=== PATIENT | male | born 1955 | race Caucasian/White ===

== ENCOUNTER 2016-10-10 16:38 | Emergency (ER) | payer BC ==
[~2016-10-10] VITALS: Ht 170.2 cm; Wt 92.2 kg
[~2016-10-10 16:38] MED LIST: ASPCH81X PO; CLR10 PO; GLUC10007 PO; MOME16.7 INH; SIMV-151 PO
[2016-10-10 17:08] VITALS: Ht 170.2 cm; Wt 92.2 kg
[2016-10-10] MEDS ORDERED: SULF800T23 PO (17:56)
[2016-10-10] MEDS ORDERED: RIFA300C34 PO (17:56)
[2016-10-10] MEDS ORDERED: OXYC1TAB3 PO (17:56)
[2016-10-10 18:06] VITALS: BP 138/84; PULSE 109; TEMP 37.6; O2SAT 97
--- NOTE | 2016-10-10 22:46 | EMERGENCY ROOM VISIT NOTE ---
History First contact with patient: 17:23 Chief Complaint: WOUND INFECTION Stated Complaint: BLISTERS Nursing Triage Summary: Pt presents with multiple wounds to b/l legs and left buttock. Pt states areas were cultured and showed MRSA. History of Present Illness The patient is a 61 year old male who presents to the Emergency Room with complaints of persistent MRSA infection. The patient started primarily with lesions to his left knee and right thigh about 10 days ago. He was started on Bactrim by his primary care physician and has completed 8 days of this medication. The lesions were cultured and did return positive for MRSA which was sensitive to Bactrim. The patient states he is taking this medication and some of his lesions have significantly improved. He has developed a worsening infection along his left-sided buttocks, that he is not actively able to see because of its anatomic location. The patient has not had fever or chills. He is not diabetic. He rates his discomfort a 7/10, primarily in his buttocks where the infection has worsened. Review of Systems More than 10 systems were reviewed and otherwise negative with the exception of history of present illness. Past Medical/Surgical History No pertinent chronic medical disease Family History No pertinent family history Social History Smoking Status: Never Smoker Housing Status: lives with family Occupation Status: employed Current/Historical Medications Scheduled Aspirin (Aspirin Chewable), 81 MG PO QPM Glucosamine Sulfate (Glucosamine), 2 TAB PO QPM Loratadine (Claritin), 10 MG PO DAILY Mometasone Furoate (Inhalation (Asmanex Hfa), 1 PUFF INH QAM Oxycodone Immediate Rel Tab (Roxicodone Ir), 1-2 TAB PO Q6 Rifampin (Rifadin), 300 MG PO BID Simvastatin (Simvastatin), 20 MG PO QPM Sulfa/Trimethoprim (Bactrim Ds 800MG/160MG), 1 TAB PO BID Physical Exam Vital Signs Date Time Temp Pulse Resp B/P (MAP) Pulse Ox O2 Delivery O2 Flow Rate FiO2 10/10/16 18:06 37.6 109 18 138/84 97 10/10/16 18:05 37.6 109 18 138/84 97 Room Air 10/10/16 17:08 37.6 107 18 126/79 96 Room Air Pain Rating (0-10): 3.0 Physical Exam VITALS: Vitals are noted on the nurse's note and reviewed by myself. Vital signs stable. GENERAL: Well-developed, well-nourished, white male, who is in no acute distress and resting comfortably. Patient is cooperative with the examination. HEAD: Normocephalic atraumatic. HEART: Regular rate and rhythm without murmurs gallops or rubs. LUNGS: Clear to auscultation bilaterally without wheezes, rales or rhonchi. No retractions or accessory muscle use. NEURO: Patient was alert and oriented to person place and time. CN II through XII grossly intact. SKIN: The skin was with multiple healing areas consistent with MRSA infection. The primary left thigh and left knee lesions are without fluctuance or significant cellulitis. There is a very small right posterior thigh abscess that is actively draining. Purulent drainage was easily expressed from this wound, and this does not appear to need formal incision and drainage. Additionally on the left inferior buttocks medially is a larger 5 cm diameter abscess that will require drainage. Medical Decision & Procedures Procedure I examined the patient. Verbal consent was obtained to perform the procedure. After saline and Betadine cleansing and ethyl chloride anesthesia, the abscess was incised with a number 15 scalpel blade. A large amount of purulent material was released with more expressed by pressure. A swab was obtained for culture. The abscess cavity was further probed with a needle ice cream truck driver and the deep pocket expressed. The abscess cavity was then copiously irrigated with sterile saline under pressure. The area was cleaned with sterile saline and dressed with bacitracin and a bulky bandage. The patient tolerated the procedure well. ED Course Physical exam and history were performed. Nursing notes, EMR, and Medication List were personally reviewed. Patient appears to have a diagnosis of MRSA infection. He just completed his eighth day of Bactrim. I was able to review the sensitivity results, and the infection is sensitive to both Bactrim and rifampin. Seeing as the patient continues to have symptoms, as well as development of a larger left-sided buttocks abscess and will extend his course of Bactrim and start him on rifampin. His buttocks abscess was incised and drained as above. The area was already oozing, however my incision did significantly improve the rate of purulent drainage, and good results were obtained. The patient overall tolerated everything well and is stable for discharge home. I will also give him a course of OxyIR for pain control. He is to follow-up with his primary care physician or back in the ER in 48-72 hours for recheck. He is otherwise invited back to the ER sooner if symptoms worsened. He was pleased with plan of care and rated his discomfort a 3/10 at the time of departure. The chart was completed utilizing [employer] Voice Recognition Software. Grammatical errors, random word insertions, pronoun errors, and incomplete sentences are an occasional consequence of this system due to software limitations, ambient noise, and hardware issues. Any formal questions or concerns about the content, text, or information contained within the body of this dictation should be directly addressed to the provider for clarification. . Medical Decision Differential diagnosis: Etiologies such as cellulitis, abscess, MRSA infection, DVT, necrotizing fasciitis, dermatitis, drug eruption, as well as others were entertained.. Blood Pressure Screening Patient's blood pressure: Normal blood pressure Impression Primary Impression: MRSA infection Additional Impression: Abscess of buttock Departure Information Dispostion Home / Self-Care Condition GOOD Prescriptions Oxycodone Immediate Rel Tab (ROXICODONE IR) 5 Mg Tab 1-2 TAB PO Q6 for Pain, #15 TAB Prov: Berny Spears PA-C 10/10/16 Rifampin (Rifadin) 300 Mg Cap 300 MG PO BID for 10 Days, #20 CAP Prov: Berny Spears PA-C 10/10/16 Sulfa/Trimethoprim (Bactrim Ds 800MG/160MG) Tab 1 TAB PO BID for 10 Days, #20 TAB Prov: Berny Spears PA-C 10/10/16 Referrals Bony Melgar M.D. (PCP) No Doctor, Assigned Forms HOME CARE DOCUMENTATION FORM, IMPORTANT VISIT INFORMATION Patient Instructions My [facility] Additional Instructions You were seen and evaluated today on an emergency basis only. This is not a substitute for, or an effort to provide, complete comprehensive medical care. It is not possible to recognize and treat all injuries or illnesses in a single emergency department visit. For this reason it is recommended that you followup with your primary care physician or back in the emergency department in 48-72 hours for recheck. Trimethoprim-Sulfamethoxazole(Bactrim DS): Take one pill twice daily for 10 days for your skin infection. All antibiotics can cause diarrhea. If this occurs and you feel worse or it does not resolve in 1-2 days follow up with your doctor or return to the Emergency Department as this could be signs of serious underlying problems. Any medication can cause an allergic reaction, stop the pills immediately and return to the ER for rash, hives, breathing difficulties, or swelling. Take rifampin 300 mg twice daily for the next 10 days. This medication can change the color of your urine. This is normal. For baseline pain relief you may alternate ibuprofen and acetaminophen every 4 hours for pain control. Take 600 mg ibuprofen (Advil) and then 4 hours later take 1000 mg acetaminophen (Tylenol). Do not take more than 3000 mg acetaminophen in a single day. Oxycodone (OxyIR) 5mg: Take ONE or TWO pills every SIX hours for breakthrough pain. Avoid alcohol, operating machinery or dangerous equipment, working on ladders or roofs, DRIVING, or situations where being under the influence may be dangerous. It is recommended to use an kmal-goc-[id number] stool softener such as Colace, 100mg twice daily while taking this medication to avoid constipation. You are welcome to return to the emergency department anytime with new, worsening, or concerning symptoms. Problem Qualifiers
== END 2016-10-10 18:08 | disposition home or self-care (01) ==
LOC: C.EDB 16:39 → C.EDC 18:08
DX: A49.02 Methicillin resistant Staphylococcus aureus infection, unspecified site (principal); L02.31 Cutaneous abscess of buttock

== ENCOUNTER 2016-10-12 10:03 | Emergency (ER) | payer BC ==
[~2016-10-12] VITALS: Ht 170.2 cm; Wt 97.5 kg
[~2016-10-12 10:03] MED LIST changes: +OXYC1TAB3 PO; +RIFA300C34 PO; +SULF800T23 PO
[2016-10-12 10:13] VITALS: TEMP 36.7; Ht 170.2 cm; Wt 97.5 kg
[2016-10-12] MEDS ORDERED: CLINDAMYCIN 600 MG/54 ML D5W IV STA (10:27)
--- NOTE | 2016-10-12 10:33 | EMERGENCY ROOM VISIT NOTE ---
History Report prepared by Oli: Deana Willis Under the Supervision of: Dr. Brandon Tabor M.D. First contact with patient: 10:19 Chief Complaint: REFERRED BY DOCTOR Stated Complaint: DRAIN ABSCESS,REFFERRED BY YARI History of Present Illness The patient is a 61 year old male who presents to the Emergency Room with complaints of a persistent abscess to his buttocks that he first noticed over a week ago. He currently rates his discomfort as a 1/10 in severity. The patient states that his abscess grew in size and notes that he had difficulty sitting due to the pain and size of the abscess. He states that he was started on Bactrim by his PCP, but then came to the emergency department and had the area drained. The patient reports that the area is not worsening, but is still not better. He was told to come to the emergency department for further work up. The patient denies any pain with bowel movements. Source of History: patient Onset: over a week ago Position: other (buttocks) Symptom Intensity: 02/14 Quality: other (abscess) Timing: other (persistent) Review of Systems See HPI for pertinent positives & negatives. A total of 10 systems reviewed and were otherwise negative. Past Medical & Surgical Medical Problems: (1) Asthma (2) Bronchitis (3) Pneumonia Surgical Problems: (1) H/O left knee surgery (2) History of herniorrhaphy Family History Hypertension Social History Smoking Status: Never Smoker Smokeless Tobacco Use: No Alcohol Use: occasionally Marital Status: Housing Status: lives with family Occupation Status: employed Current/Historical Medications Scheduled Aspirin (Aspirin Chewable), 81 MG PO QPM Glucosamine Sulfate (Glucosamine), 2 TAB PO QPM Loratadine (Claritin), 10 MG PO DAILY Mometasone Furoate (Inhalation (Asmanex Hfa), 1 PUFF INH QAM Oxycodone Immediate Rel Tab (Roxicodone Ir), 1-2 TAB PO Q6 Rifampin (Rifadin), 300 MG PO BID Simvastatin (Simvastatin), 20 MG PO QPM Sulfa/Trimethoprim (Bactrim Ds 800MG/160MG), 1 TAB PO BID Allergies Coded Allergies: Penicillins (Verified Allergy, Unknown, UNSURE, 08/19/15) RASH FROM AUGMENTIN Physical Exam Vital Signs Date Time Temp Pulse Resp B/P (MAP) Pulse Ox O2 Delivery O2 Flow Rate FiO2 9/7/17 12:41 75 18 111/91 96 Room Air 10/12/16 10:13 36.7 82 18 131/74 97 Room Air Physical Exam GENERAL: Patient is a healthy-appearing well-nourished male HEAD: Normocephalic atraumatic EYES: Ocular movements intact pupils equal and react to light OROPHARYNX mucous membranes are moist no exudates present no erythema or edema present NECK: Supple no nuchal rigidity CHEST: Good equal expansion LUNGS: Clear and equal to auscultation CARDIAC: Normal S1 and S2 ABDOMEN: Soft nontender no guarding BACK: No CVA tenderness RECTAL: Large boil to the left buttocks that is draining. EXTREMITIES: No pain upon palpation normal muscle strength in all groups no clubbing cyanosis or edema NEURO: Patient is following commands and answering questions appropriately. Alert and oriented x3 Cranial Nerves 2-12 grossly intact Medical Decision & Procedures Laboratory Results 10/12/16 10:35 Red Blood Count 4.41, Mean Corpuscular Volume 91.2, Mean Corpuscular Hemoglobin 32.0, Mean Corpuscular Hemoglobin Concent 35.1, Mean Platelet Volume 10.3, Neutrophils (%) (Auto) 56.8, Lymphocytes (%) (Auto) 28.9, Monocytes (%) (Auto) 10.6, Eosinophils (%) (Auto) 1.6, Basophils (%) (Auto) 0.8, Neutrophils # (Auto ) 4.30, Lymphocytes # (Auto) 2.19, Monocytes # (Auto) 0.80, Eosinophils # (Auto ) 0.12, Basophils # (Auto) 0.06 10/12/16 10:35 Test 10/12/16 10:35 10/12/16 11:02 White Blood Count 7.57 K/uL (4.8-10.8) Red Blood Count 4.41 M/uL (4.7-6.1) Hemoglobin 14.1 g/dL (14.0-18.0) Hematocrit 40.2 % (42-52) Mean Corpuscular Volume 91.2 fL (80-100) Mean Corpuscular Hemoglobin 32.0 pg (25-34) Mean Corpuscular Hemoglobin Concent 35.1 g/dl (32-36) Platelet Count 285 K/uL (130-400) Mean Platelet Volume 10.3 fL (7.4-10.4) Neutrophils (%) (Auto) 56.8 % Lymphocytes (%) (Auto) 28.9 % Monocytes (%) (Auto) 10.6 % Eosinophils (%) (Auto) 1.6 % Basophils (%) (Auto) 0.8 % Neutrophils # (Auto) 4.30 K/uL (1.4-6.5) Lymphocytes # (Auto) 2.19 K/uL (1.2-3.4) Monocytes # (Auto) 0.80 K/uL (0.11-0.59) Eosinophils # (Auto) 0.12 K/uL (0-0.5) Basophils # (Auto) 0.06 K/uL (0-0.2) RDW Standard Deviation 41.3 fL (36.4-46.3) RDW Coefficient of Variation 12.4 % (11.5-14.5) Immature Granulocyte % (Auto) 1.3 % Immature Granulocyte # (Auto) 0.10 K/uL (0.00-0.02) Anion Gap 7.0 mmol/L (3-11) Est Creatinine Clear Calc Drug Dose 57.5 ml/min Estimated GFR () 57.4 Estimated GFR (Non- 49.5 BUN/Creatinine Ratio 9.8 (10-20) Calcium Level 8.8 mg/dl (8.5-10.1) Total Bilirubin 0.8 mg/dl (0.2-1) Direct Bilirubin 0.2 mg/dl (0-0.2) Aspartate Amino Transf (AST/SGOT) 20 U/L (15-37) Alanine Aminotransferase (ALT/SGPT) 32 U/L (12-78) Alkaline Phosphatase 104 U/L (45-117) Total Protein 7.8 gm/dl (6.4-8.2) Albumin 3.8 gm/dl (3.4-5.0) Lipase 206 U/L (73-393) Urine Color DK YELLOW Urine Appearance CLEAR (CLEAR) Urine pH 5.5 (4.5-7.5) Urine Specific [place] 1.013 (1.000-1.030) Urine Protein NEG (NEG) Urine Glucose (UA) NEG (NEG) Urine Ketones NEG (NEG) Urine Occult Blood NEG (NEG) Urine Nitrite NEG (NEG) Urine Bilirubin NEG (NEG) Urine Urobilinogen NEG (NEG) Urine Leukocyte Esterase NEG (NEG) Labs reviewed by ED physician. Medications Administered Medications (Trade) Dose Ordered Sig/Girish Route Start Time Stop Time Status Last Admin Dose Admin Clindamycin Phosphate 600 mg/ Dextrose 54 ml @ 108 mls/hr TODAY@1030 IV 10/13/16 10:30 10/13/16 10:30 DC 10/12/16 11:00 108 MLS/HR ED Course 1020: Past medical records reviewed. The patient was evaluated in room A9B. A complete history and physical examination was performed. 1027: Ordered Clindamycin Phosphate 600 mg IV. 1156: I discussed the patients case with Dr. Gamble, General Surgery. He states that they will be down to see the patient. 1305: I reevaluated the patient and he is doing well. I discussed the exam findings with him and I discussed the treatment plan. He verbalized complete understanding and agreement. He is ready to go home. Medical Decision This is a 61-year-old male who presents emergency department complaining of buttock abscess. The patient was sent in by his primary care physician to see a surgeon. For this reason surgery was consulted. He was examined and will follow-up as an outpatient the office. In the meantime the patient does not have an elevation in his white blood count cell count. He was given clindamycin here in emergency department and took his Bactrim at home. Medication Reconcilliation Current Medication List: was personally reviewed by me Blood Pressure Screening Patient's blood pressure: Elevated blood pressure Blood pressure disposition: Referred to PCP Impression Primary Impression: Abscess of buttock Scribe Attestation The scribe's documentation has been prepared under my direction and personally reviewed by me in its entirety. I confirm that the note above accurately reflects all work, treatment, procedures, and medical decision making performed by me. Departure Information Dispostion Home / Self-Care Referrals Peter Gamble D.O., Christopher E., M.D. Forms HOME CARE DOCUMENTATION FORM, IMPORTANT VISIT INFORMATION, WORK / SCHOOL INSTRUCTIONS Patient Instructions My [facility] Additional Instructions You have been examined and treated today on an emergency basis only. This is not a substitute for, or an effort to provide, complete comprehensive medical care. It is impossible to recognize and treat all injuries or illnesses in a single emergency department visit. It is therefore important that you follow up closely with Dr Melgar. Call as soon as possible for an appointment. Thank you for your time and consideration. I look forward to speaking with you again soon. Please don't hesitate to call us if you have any questions.
[2016-10-12 10:58] LABS: BASO % 0.8 %; BASO ABS # 0.06 K/uL (0-0.2); COMPLETE YES; EOS % 1.6 %; HEMATOCRIT 40.2 % (42-52); IG% 1.3 %; LYMPH % 28.9 %; LYMPH ABS # 2.19 K/uL (1.2-3.4); MEAN CELL VOLUME 91.2 fL (80-100); MEAN CORPUSCULAR HGB CONC 35.1 g/dl (32-36); MEAN PLATELET VOLUME 10.3 fL (7.4-10.4); MONO % 10.6 %; NEUT % 56.8 %; PLATELET COUNT 285 K/uL (130-400); RED BLOOD COUNT 4.41 M/uL (4.7-6.1); WHITE BLOOD COUNT 7.57 K/uL (4.8-10.8)
[2016-10-12 11:10] LABS: BUN/CREATININE RATIO 9.8 (10-20); CALCIUM 8.8 mg/dl (8.5-10.1); CREATININE 1.5 mg/dl (0.60-1.40); POTASSIUM 3.6 mmol/L (3.5-5.1)
[2016-10-12 11:15] LABS: URINE APPEARANCE CLEAR (CLEAR); URINE BILIRUBIN NEG (NEG); URINE COLOR DK YELLOW; URINE NITRITE NEG (NEG); URINE PH 5.5 (4.5-7.5); URINE SPECIFIC GRAVITY 1.013 (1.000-1.030); UROBILINOGEN NEG (NEG)
[2016-10-12 11:17] LABS: MANUAL MICROSCOPIC REQUIRED? NO; REVIEW REQ? NO
[2016-10-12 12:41] VITALS: BP 111/91; PULSE 75; O2SAT 96
--- NOTE | 2016-10-12 13:08 | Surgery Consultation ---
Consultation Date of Consultation: Oct 12, 2016. Attending Physician: Reason for Consultation: Abscess of Left Buttock History of Present Illness 61-year-old male presents to [facility] ED for evaluation of abscess on left buttock. Patient was at PCP office this morning for follow-up of abscess after recent ED (10/10/16) visit where abscess was drained and cultures were taken (+MRSA). Patient reports that many people have looked at the abscess one time, but no one has examined it more than once to see if it is improving. Patient states that abscess is feeling better- much less painful. Patient denies fever or chills. Patient is on current appropriate antibiotic regimen. Past Medical/Surgical History Medical Problems: (1) Abscess of buttock Status: Acute (2) Abscess of buttock Status: Acute (3) MRSA infection Status: Acute Family History Hypertension Social History Smoking Status: Never Smoker Smokeless Tobacco Use: No Marital Status: Housing Status: lives with family Occupation Status: employed Allergies Coded Allergies: Penicillins (Verified Allergy, Unknown, UNSURE, 08/19/15) RASH FROM AUGMENTIN Home Medications Scheduled Aspirin (Aspirin Chewable), 81 MG PO QPM Glucosamine Sulfate (Glucosamine), 2 TAB PO QPM Loratadine (Claritin), 10 MG PO DAILY Mometasone Furoate (Inhalation (Asmanex Hfa), 1 PUFF INH QAM Oxycodone Immediate Rel Tab (Roxicodone Ir), 1-2 TAB PO Q6 Rifampin (Rifadin), 300 MG PO BID Simvastatin (Simvastatin), 20 MG PO QPM Sulfa/Trimethoprim (Bactrim Ds 800MG/160MG), 1 TAB PO BID Current Inpatient Medications Current Inpatient Medications Medications (Trade) Dose Ordered Sig/Girish Route Start Time Stop Time Status Last Admin Dose Admin Clindamycin Phosphate 600 mg/ Dextrose 54 ml @ 108 mls/hr TODAY@1030 IV 10/13/16 10:30 10/13/16 10:59 10/12/16 11:00 108 MLS/HR Review of Systems Constitutional: No fever, No chills Physical Exam Date Time Temp Pulse Resp B/P (MAP) Pulse Ox O2 Delivery O2 Flow Rate FiO2 10/12/16 12:41 75 18 111/91 96 Room Air 10/12/16 10:13 36.7 82 18 131/74 97 Room Air Skin: + pertinent finding (hardened area on left buttock. non-tender to palpation. no drainage noted. ) Laboratory Results Last 24 Hours Test 10/12/16 10:35 10/12/16 11:02 White Blood Count 7.57 K/uL Red Blood Count 4.41 M/uL Hemoglobin 14.1 g/dL Hematocrit 40.2 % Mean Corpuscular Volume 91.2 fL Mean Corpuscular Hemoglobin 32.0 pg Mean Corpuscular Hemoglobin Concent 35.1 g/dl Platelet Count 285 K/uL Mean Platelet Volume 10.3 fL Neutrophils (%) (Auto) 56.8 % Lymphocytes (%) (Auto) 28.9 % Monocytes (%) (Auto) 10.6 % Eosinophils (%) (Auto) 1.6 % Basophils (%) (Auto) 0.8 % Neutrophils # (Auto) 4.30 K/uL Lymphocytes # (Auto) 2.19 K/uL Monocytes # (Auto) 0.80 K/uL Eosinophils # (Auto) 0.12 K/uL Basophils # (Auto) 0.06 K/uL RDW Standard Deviation 41.3 fL RDW Coefficient of Variation 12.4 % Immature Granulocyte % (Auto) 1.3 % Immature Granulocyte # (Auto) 0.10 K/uL Sodium Level 138 mmol/L Potassium Level 3.6 mmol/L Chloride Level 105 mmol/L Carbon Dioxide Level 26 mmol/L Anion Gap 7.0 mmol/L Blood Urea Nitrogen 15 mg/dl Creatinine 1.50 mg/dl Est Creatinine Clear Calc Drug Dose 57.5 ml/min Estimated GFR () 57.4 Estimated GFR (Non- 49.5 BUN/Creatinine Ratio 9.8 Random Glucose 103 mg/dl Calcium Level 8.8 mg/dl Total Bilirubin 0.8 mg/dl Direct Bilirubin 0.2 mg/dl Aspartate Amino Transf (AST/SGOT) 20 U/L Alanine Aminotransferase (ALT/SGPT) 32 U/L Alkaline Phosphatase 104 U/L Total Protein 7.8 gm/dl Albumin 3.8 gm/dl Lipase 206 U/L Urine Color DK YELLOW Urine Appearance CLEAR Urine pH 5.5 Urine Specific [place] 1.013 Urine Protein NEG Urine Glucose (UA) NEG Urine Ketones NEG Urine Occult Blood NEG Urine Nitrite NEG Urine Bilirubin NEG Urine Urobilinogen NEG Urine Leukocyte Esterase NEG Assessment & Plan No surgical intervention indicated at this time. Will have patient follow-up in the General Surgery Office on 10/16/2016 Continue current antibiotic regimen. Patient instructed to return to ED if abscess worsens. Patient agreeable with plan. Patient had no further questions.
[2016-10-13] MEDS ORDERED: CLINDAMYCIN IV 600 MG in DEXTROSE 5% 50ML 50 ML IV SCH (10:30)
== END 2016-10-12 13:15 | disposition home or self-care (01) ==
LOC: C.EDB 10:05 → C.EDA 13:15
DX: L02.31 Cutaneous abscess of buttock (principal); J45.909 Unspecified asthma, uncomplicated; Z87.01 Personal history of pneumonia (recurrent); Z82.49 Family history of ischemic heart disease and other diseases of the circulatory system; Z79.82 Long term (current) use of aspirin; Z79.899 Other long term (current) drug therapy

== ENCOUNTER 2022-04-11 22:41 | Observation (INO) ==
[2022-04-11] MEDS ORDERED: MoRPHine SULFATE 4 MG/ML 1 ML CARP\\VIAL IV STA (23:25)
[2022-04-11] MEDS ORDERED: ONDANSETRON INJ 2 MG/ML 2 ML VIAL IV STA (23:25)
--- NOTE | 2022-04-12 00:11 | Emergency Department Note ---
Impression & Plan Acute cholecystitis, Chronic lymphocytic leukemia (CLL), B-cell ED Provider Note CHIEF COMPLAINT: Epigastric abdominal pain HISTORY OF PRESENT ILLNESS: This 66-year-old male patient with a history of CLL, chronic kidney disease, prediabetes and GERD presents to the emergency department with complaints of epigastric abdominal pain since about 2:00 this afternoon. The patient states he ate some tortellini, an orange and some trail mix, then developed some crampy epigastric pain. This has happened in the past, most notably a few weeks ago after a big turkey dinner. Patient states he can usually get it to resolve within several hours, but this time he remains. The patient is nauseated but has not vomited. He is not having any diarrhea. He believes it is his gallbladder but has never had it evaluated. He denies any chest pain, shortness of breath, fevers, back pain. REVIEW OF SYSTEMS: A review of systems was performed with positives and pertinent negatives listed in the history of present illness. 10 systems were reviewed and are otherwise negative. ALLERGIES: see below MEDICATIONS: see below PMH: see below SOCIAL HISTORY: see below DDx: Appendicitis, diverticulitis, UTI, obstruction, mesenteric ischemia, aortic pathology, PUD, pancreatitis, biliary pathology, hernia, volvulus, constipation, as well as other pathologies. PHYSICAL EXAM: Vital signs reviewed. General: Well-appearing 66-year-old male, in no significant distress. HEENT: No scleral icterus, PERRLA, neck supple. Moist mucous membranes Cardiovascular: Regular rate and rhythm, no extra sounds. Pulmonary: Clear to auscultation bilaterally, normal work of breathing. Abdomen: Soft, tender to palpation over the epigastric and right upper quadrant, positive guarding, nondistended, positive bowel sounds. Musculoskeletal: Atraumatic, no peripheral edema. Neurologic: Patient awake alert and oriented x 3 Skin: Warm, dry, no rash EMERGENCY DEPARTMENT COURSE/MDM: This patient was evaluated and appeared to be in no significant distress. IV access was obtained and laboratory work was drawn. Ultrasound the right upper quadrant was performed and reveals evidence of acute cholecystitis. The patient's WBC is elevated however he does suffer from CLL as well. Patient was treated with IV Cipro and Flagyl. Case was discussed with general surgery, Dr. Duggan has requested medical admission and he will consult in the morning. Case was discussed with the hospitalist service for further management. Patient was informed of the findings and plan and agrees. MONITORING: An order for cardiac monitoring was placed and the patient is noted to be in a NSR at 68 beats per minute. RADIOLOGY: US gallbladder to my review reveals evidence of acute cholecystitis, otherwise deferred to radiology's overread. DISPOSITION: Home Past Med/Surg History Medical History (Updated 04/12/22 @ 06:58 by Lynne Rudolph MD) Asthma INHALER DAILY Diverticular disease GERD (gastroesophageal reflux disease) Hyperlipidemia Osteoarthritis Tinnitus of left ear Surgical History H/O arthroscopy of left knee H/O bilateral cataract extraction H/O left inguinal hernia repair H/O repair of right rotator cuff History of colonoscopy History of tooth extraction WISDOM TEETH Family History Father Scleroderma Mother Dementia Hypertension Family/Other Prostate cancer Paternal uncle Aunt Breast cancer Denies family history of Ovarian cancer Coronary heart disease Myocardial infarction Colorectal cancer Social History Smoking Status: Never smoker Second Hand Exposure: No; Hx Alcohol Use: Yes Alcohol type: beer Alcohol Intake Frequency: 2-3 x/Week Hx Substance Use: No Preferred Language: Portuguese Communication Ability: Effective Visual Impairment: No Limitations Hearing Ability: Normal Tube Fitter Required: No Beliefs That Will Affect Care: None marital status: Current Living Situation: Spouse Current Living Situation Comment: LIVES WITH current occupational status: retired current occupation: [employer] Other Information That Helps Us Care for You: No Feels Safe at Home: Yes Safety Concerns: Feels Safe At This Time Childhood Exposure to Second-Hand Smoke: No caffeine: Yes Dental Care, Regularly: Yes Physical Activity Frequency: Daily Physical Activity Frequency Comment: stretching, bicycling 2-6 hours per day Seatbelt Use: always Sunscreen Use: Yes Assistive Devices: None Allergies Allergies Allergy/AdvReac Type Severity Reaction Status Date / Time Penicillins Allergy Mild Rash Verified 09/26/21 14:01 amoxicillin [From Augmentin] Allergy Unknown Verified 04/12/22 04:58 clavulanic acid Allergy Unknown Verified 04/12/22 04:58 [From Augmentin] Home Meds Home Medications Medication Instructions Recorded Confirmed cetirizine 10 mg tablet (Zyrtec) 10 mg PO QPM 11/05/17 04/12/22 glucosamine HCl 500 mg tablet 2,000 mg PO QPM 11/05/17 04/12/22 aspirin 81 mg tablet,delayed 81 mg PO .QOD 08/03/20 04/12/22 release (Fidelia Low Dose Aspirin) Previous Rx's Medication Instructions Recorded fluticasone propionate 100 1 inh inhalation BID #180 ea 11/23/20 mcg/actuation blister powder for inhalation (Flovent Diskus) metformin 500 mg tablet,extended 500 mg PO BID #180 tabs 09/13/21 release 24hr famotidine 20 mg tablet 20 mg PO BID 90 days #180 tabs 10/31/21 simvastatin 20 mg tablet 20 mg PO QPM #90 tabs 10/31/21 Results & Data (ED) Vital Signs Vital Signs - 24 hr 04/11/22 22:46 04/12/22 02:21 Temperature 36.4 C L Temperature Source Temporal Artery Scan Pulse Rate 69 Pulse Rate [Right] 68 Respiratory Rate 18 18 Respiratory Effort / Characteristics Non-Labored Spontaneous Respiratory Depth Normal Normal Blood Pressure 148/76 H Blood Pressure [Right Arm] 118/69 Blood Pressure Mean 100 Blood Pressure Mean [Right Arm] 85 Blood Pressure Position Sitting Pulse Oximetry 98 96 Oxygen Delivery Method Room Air Room Air Sepsis Recent Fever Within 48 Hours No Sepsis New/Unexplained Change in Mental Status No Sepsis Action Taken by Nursing No Action Required Home Medications Current Medication List: was personally reviewed by me Laboratory Data Attestation: I reviewed the patient's lab results. 04/12/22 01:04 04/12/22 01:04 Lab Results 04/12/22 04/12/22 04/12/22 Range/Units 01:04 01:04 02:20 WBC 18.13 H (4.8-10.8) K/ul RBC 4.09 L (4.70-6.10) M/uL Hgb 13.0 L (14.0-18.0) g/dl Hct 38.0 L (42.0-52.0) % MCV 92.9 (80.0-100.0) fL MCH 31.8 (25.0-34.0) pg MCHC 34.2 (32.0-36.0) g/dL RDW Std Deviation 42.4 (36.4-46.3) fL RDW Coeff of Zana 12.4 (11.5-14.5) % Plt Count 185 (130-400) K/uL MPV 11.6 (9.4-12.4) fL Immature Gran % (Auto) 0.7 % Neut % (Auto) 64.9 % Lymph % (Auto) 31.8 % [place] % (Auto) 2.4 % Eos % (Auto) 0.0 % Baso % (Auto) 0.2 % Neut # (Auto) 11.77 H (1.40-6.50) K/uL Lymph # (Auto) 5.77 H (1.2-3.4) K/uL [place] # (Auto) 0.43 (0.11-0.59) K/uL Eos # (Auto) 0.00 (0-0.50) K/uL Baso # (Auto) 0.03 (0-0.2) K/uL Immature Gran # (Auto) 0.13 (0.01-0.20) K/uL RBC Morphology Unremarkable Sodium 137 (136-145) mmol/L Potassium 4.2 (3.5-5.1) mmol/L Chloride 104 (98-107) mmol/L Carbon Dioxide 27 (21-32) mmol/L Anion Gap 6 (3-11) BUN 16 (6-23) mg/dl Creatinine 1.15 (0.6-1.4) mg/dl Est Cr Clr Drug Dosing 66.8 ml/min Est GFR ( Amer) 76.4 ml/min Est GFR (Non-Af Amer) 65.9 ml/min BUN/Creatinine Ratio 13.9 (10-20) Glucose 143 H (70-99(Fasting)) mg/dl Calcium 8.8 (8.5-10.1) mg/dl Total Bilirubin 0.6 (0.2-1.0) mg/dl AST 15 (13-39) U/L ALT 13 (7-52) U/L Alkaline Phosphatase 68 (34-104) U/L Total Protein 6.8 (6.0-8.3) gm/dl Albumin 4.5 (3.4-5.0) gm/dl Globulin 2.3 L (2.5-4.0) gm/dl Albumin/Globulin Ratio 2.0 (0.9-2) Lipase 23 (11-82) U/L SARS-CoV-2, RNA, NAAT NEGATIVE (NEGATIVE) Administered Medications Lactated Ringer's (Lr) 1,000 mls @ 100 mls/hr IV .Q10H MARIA DEL CARMEN Stop: 04/12/22 14:51 Last Infusion: 04/12/22 06:24 Dose: 100 mls/hr Documented By: Admin: 04/12/22 05:11 Dose: 100 mls/hr Documented By: JONATHAN Discontinued Medications Hydromorphone HCl (Hydromorphone Inj 0.5 Mg/0.5 Ml Syr) 0.5 mg IV Q30M PRN PRN Reason: Pain Stop: 04/26/22 01:56 Last Admin: 04/12/22 04:19 Dose: 0.5 mg Documented By: Admin: 04/12/22 02:11 Dose: 0.5 mg Documented By: TONY Ciprofloxacin (Cipro / D5w) 400 mg in 200 mls @ 100 mls/hr IV NOW STA; Protocol Stop: 04/12/22 03:53 Last Infusion: 04/12/22 04:19 Dose: 0 mls/hr Documented By: Admin: 04/12/22 02:11 Dose: 100 mls/hr Documented By: TONY Metronidazole (Flagyl) 500 mg in 100 mls @ 100 mls/hr IV NOW STA Stop: 04/12/22 02:53 Last Infusion: 04/12/22 04:54 Dose: 0 mls/hr Documented By: Admin: 04/12/22 03:23 Dose: 100 mls/hr Documented By: TONY Morphine Sulfate (Morphine Sulfate 4 Mg/Ml 1 Ml Carp\Vial) 4 mg IV NOW STA Stop: 04/11/22 23:26 Last Admin: 04/12/22 00:12 Dose: 4 mg Documented By: TONY Ondansetron HCl (Ondansetron Inj 2 Mg/Ml 2 Ml Vial) 4 mg IV NOW STA Stop: 04/11/22 23:26 Last Admin: 04/12/22 00:12 Dose: 4 mg Documented By: TONY Imaging Data Radiologist's Impression: Gallbladder Ultrasound 04/11/22 23:25 Exam(s): US GALLBLADDER EXAM: US Abdomen Limited, Gallbladder CLINICAL HISTORY: Reason for exam: Epigastric pain. TECHNIQUE: Real-time ultrasound of the right upper quadrant with image documentation. COMPARISON: No relevant prior studies available. FINDINGS: Limitations: The examination is moderately limited by overlying bowel gas. Liver: Unremarkable. No evidence for intra-or extra-hepatic biliary ductal dilatation, the common bile duct measures 0.5 cm. Gallbladder: The gallbladder is distended with minimal wall thickening. There is a 0.9 cm calculus noted in the gallbladder neck (image 450 series 1). Common bile duct: See above. Pancreas: Unremarkable as visualized. IMPRESSION: Findings suggesting acute cholecystitis Electronically signed by: Hayden Wilson MD 04/12/22 01:33 AM Discharge Plan Visit Data Chief Complaint: Abdominal Pain Stated Complaint: PAIN BELOW RIB CAGE,VOMIT, ED Provider: Lynne Rudolph Discharge Problem: Acute cholecystitis, Chronic lymphocytic leukemia (CLL), B-cell Patient Disposition: Admitted As Inpatient Discharge Instructions Interventions: ED Discharge Assessment Last Done: 04/12/22 03:51
[2022-04-12 01:23] LABS: Mean Corpuscular Hemoglobin 31.8 pg (25.0-34.0); Mean Corpuscular Hgb Conc 34.2 g/dL (32.0-36.0); Mean Corpuscular Volume 92.9 fL (80.0-100.0); Mean Platelet Volume 11.6 fL (9.4-12.4); Platelet Count 185 K/uL (130-400); RDW Coefficient of Variation 12.4 % (11.5-14.5); RDW Standard Deviation 42.4 fL (36.4-46.3); Red Blood Count 4.09 M/uL (4.70-6.10); White Blood Count 18.13 K/ul (4.8-10.8)
--- NOTE | 2022-04-12 01:34 | Ultrasound Report ---
Exam(s): US GALLBLADDER EXAM: US Abdomen Limited, Gallbladder CLINICAL HISTORY: Reason for exam: Epigastric pain. TECHNIQUE: Real-time ultrasound of the right upper quadrant with image documentation. COMPARISON: No relevant prior studies available. FINDINGS: Limitations: The examination is moderately limited by overlying bowel gas. Liver: Unremarkable. No evidence for intra-or extra-hepatic biliary ductal dilatation, the common bile duct measures 0.5 cm. Gallbladder: The gallbladder is distended with minimal wall thickening. There is a 0.9 cm calculus noted in the gallbladder neck (image 450 series 1). Common bile duct: See above. Pancreas: Unremarkable as visualized. IMPRESSION: Findings suggesting acute cholecystitis Electronically signed by: Hayden Wilson MD 04/12/22 01:33 AM
[2022-04-12 01:36] LABS: Albumin Level 4.5 gm/dl (3.4-5.0); BUN Creatinine Ratio 13.9 (10-20); Bilirubin,Total 0.6 mg/dl (0.2-1.0); Calcium 8.8 mg/dl (8.5-10.1); Creatinine Clr Calc Pharmacy 66.8 ml/min; Est GFR (African American) 76.4 ml/min; Est GFR (Non-African American) 65.9 ml/min; Globulin 2.3 gm/dl (2.5-4.0); Potassium 4.2 mmol/L (3.5-5.1); Total Protein 6.8 gm/dl (6.0-8.3)
[2022-04-12] MEDS ORDERED: metroNIDAZOLE 500 MG/100 ML BAG IV STA (01:54)
[2022-04-12] MEDS ORDERED: CIPROFLOXACIN / D5W 400 MG/200 ML BAG IV STA (01:54)
[2022-04-12 01:56] LABS: Basophils # (auto) 0.03 K/uL (0-0.2); Basophils % (auto) 0.2 %; Immature Granulocytes # (auto) 0.13 K/uL (0.01-0.20); Immature Granulocytes % (auto) 0.7 %; Lymphocytes # (auto) 5.77 K/uL (1.2-3.4); Lymphocytes % (auto) 31.8 %; Monocytes # (auto) 0.43 K/uL (0.11-0.59); Monocytes % (auto) 2.4 %; Neutrophils # (auto) 11.77 K/uL (1.40-6.50); Neutrophils % (auto) 64.9 %; RBC Morphology Unremarkable
[2022-04-12] MEDS: HYDROmorphone INJ 0.5 MG/0.5 ML SYR IV PRN ×2 (02:11→04:19)
--- NOTE | 2022-04-12 03:06 | History & Physical Report ---
Patient seen and examined. I agree with the history and physical and the plan as outlined in the resident's note. Date of Service April 12, 2022 Assessment & Plan (1) Acute cholecystitis: Plan: -Clinical history and exam suggestive of acute cholecystitis. Low suspicion at present for cholangitis as pt is afebrile, VSS -NPO, LR at 100 cc/hr mIVF -Zofran PRN nausea. Pain control with Dilaudid, Toradol PRN -Continue ciprofloxacin/Flagyl -Consult general surgery (2) Dyslipidemia: Plan: -Holding home statin while NPO (3) GERD (gastroesophageal reflux disease): Plan: -Holding home famotidine while NPO, convert to IV (4) Chronic kidney disease, stage 3: Plan: -Cr at baseline on admission -Stable, trend BMP (5) Chronic lymphocytic leukemia (CLL), B-cell: Plan: -WBC 18 likely secondary to CLL and less so from acute infection -Pt is currently monitoring CLL, no active treatment -Trend CBC (6) Impaired fasting glucose: Plan: -Prediabetes, A1C 5.8% in 02/27 -Diet-controlled (7) Asthma: Plan: -Continue home inhaler Plan FENGI: NPO Code status: Full DVT ppx: SCDs Isolation: None Dispo: Medical/surgical History of Present Illness Chief Complaint: Abdominal pain Primary Care Provider: Bony Melgar MD 66 yo M with PMH CLL, CKD3, GERD, prediabetes, asthma, HLD presenting with abdominal pain. Pt states he has had intermittent epigastric/RUQ abdominal pain for past few years, typically lasts for few hours with self-resolution, exacerbated by greasy/oily foods. Earlier on 04/11 after lunch he developed epigastric abdominal pain without radiation to anywhere else. This pain is similar to his previous ones- describes as sharp, moderate severity, associated with nausea. It persisted longer than usual so he came to ED. Pt arrived to ER hemodynamically stable. Initial labs include WBC 18. CBC, CMP, lipase otherwise unremarkable. RUQ US with findings suggestive of cholecystitis. Pt was given Zofran, morphine, Dilaudid and ciprofloxacin/Flagyl in ER. On my evaluation, he denies active abdominal pain but this was shortly after administration of pain medication. Allergies Allergy/AdvReac Type Severity Reaction Status Date / Time Penicillins Allergy Mild Rash Verified 09/26/21 14:01 Augmentin TABS Allergy Unknown Uncoded 04/12/22 01:30 Home Medications Medication Instructions Recorded Confirmed Type cetirizine 10 mg tablet (Zyrtec) 10 mg PO QPM 11/05/17 04/12/22 History glucosamine HCl 500 mg tablet 2,000 mg PO QPM 11/05/17 04/12/22 History aspirin 81 mg tablet,delayed 81 mg PO .QOD 08/03/20 04/12/22 History release (Fidelia Low Dose Aspirin) fluticasone propionate 100 1 inh inhalation BID #180 ea 11/23/20 04/12/22 Rx mcg/actuation blister powder for inhalation (Flovent Diskus) metformin 500 mg tablet,extended 500 mg PO BID #180 tabs 09/13/21 04/12/22 Rx release 24hr famotidine 20 mg tablet 20 mg PO BID 90 days #180 tabs 10/31/21 04/12/22 Rx simvastatin 20 mg tablet 20 mg PO QPM #90 tabs 10/31/21 04/12/22 Rx Past Med/Surg History Medical History (Updated 04/12/22 @ 03:07 by Hannah Jackson MD) Asthma INHALER DAILY Diverticular disease GERD (gastroesophageal reflux disease) Hyperlipidemia Osteoarthritis Tinnitus of left ear Surgical History H/O arthroscopy of left knee H/O bilateral cataract extraction H/O left inguinal hernia repair H/O repair of right rotator cuff History of colonoscopy History of tooth extraction WISDOM TEETH Family History Father Scleroderma Mother Dementia Hypertension Family/Other Prostate cancer Paternal uncle Aunt Breast cancer Denies family history of Ovarian cancer Coronary heart disease Myocardial infarction Colorectal cancer Social History Smoking Status: Never smoker Second Hand Exposure: No; Hx Alcohol Use: Yes Alcohol type: beer Alcohol Intake Frequency: 2-3 x/Week Hx Substance Use: No Preferred Language: Frisian Communication Ability: Effective Visual Impairment: No Limitations Hearing Ability: Normal Secretary Bookkeeper Required: No Beliefs That Will Affect Care: None marital status: Current Living Situation: Spouse Current Living Situation Comment: LIVES WITH current occupational status: retired current occupation: [employer] Feels Safe at Home: Yes Childhood Exposure to Second-Hand Smoke: No caffeine: Yes Dental Care, Regularly: Yes Physical Activity Frequency: Daily Physical Activity Frequency Comment: stretching, bicycling 2-6 hours per day Seatbelt Use: always Sunscreen Use: Yes Assistive Devices: None Review of Systems Review of Systems: Per HPI Physical Exam Constitutional: WD/WN, vitals as above no acute distress Eyes: PERRL, conjunctivae normal, anicteric sclerae Neck: trachea midline, no thyromegaly Respiratory: normal respiratory effort, lungs clear to auscultation Cardiovascular: RRR, no murmur, no edema Gastrointestinal (Abdomen): Soft, nondistended, tender to epigastrium and RUQ, positive Nguyễn sign, no rebound or guarding, normal bowel sounds Skin: no rashes, warm and dry Neurologic: moves all extremities Psychiatric: A+Ox3, euthymic affect Results & Data Results & Data ([facility]) Vital Signs (Past 12 Hours) Vital Signs Temp Pulse Pulse Resp BP BP Pulse Ox 04/12/22 02:21 68 18 118/69 96 04/11/22 22:46 36.4 C L 69 18 148/76 H 98 O2 Del Method 04/12/22 02:21 Room Air 04/11/22 22:46 Room Air Code Status & VTE Plan VTE Prophylaxis Plan VTE Prophylaxis will be ordered: Yes Resident Activity Tracking Resident Involvement: Resident Care Provided Care Provided: Adult Hospital Medicine
[2022-04-12] MEDS ORDERED: LACTATED RINGER'S 1,000 ML IV SCH (04:52)
[2022-04-12] MEDS ORDERED: HYDROmorphone INJ 0.5 MG/0.5 ML SYR IV PRN (04:52)
[2022-04-12] MEDS ORDERED: KETOROLAC TROMETHAMINE 15 MG/ML VIAL IV PRN (04:52)
[2022-04-12] MEDS ORDERED: ONDANSETRON INJ 2 MG/ML 2 ML VIAL IV PRN ×2 (04:52→10:25)
[2022-04-12 05:26] LABS: Appearance Urine Cloudy (Clear); Bacteria Urine Automated Negative (Negative); Bilirubin Urine Negative (Negative); Blood Urine Negative (Negative); Color Urine Yellow; Epithelial Cell Urine Auto 20-30 /lpf (0-5); Glucose Urine UA Trace (Negative); Ketones Urine Trace (Negative); Leukocyte Esterase Urine Negative (Negative); Nitrite Urine Negative (Negative); Protein Urine Negative (Negative); RBC Urine Automated 0-4 /hpf (0-4); Specific Gravity Urine 1.024 (1.000-1.030); Urobilinogen Urine Negative (Negative); pH Urine 6.5 (4.5-7.5)
[2022-04-12] MEDS: FLUTICASONE FUROATE 100MCG 14 PUFFS/INHALER INH SCH (08:04)
--- NOTE | 2022-04-12 08:31 | Hospitalist Progress Note ---
Date of Service April 12, 2022 Assessment & Plan (1) Acute cholecystitis: Plan: -Clinical history, exam, gallbladder ultrasound with findings suggestive of acute cholecystitis. -S/p cholecystectomy 04/[address] Fung. -Advanced to clear liquid diet, and given fluid bolus due to mild hypotension postop. -Zofran PRN nausea. Pain control with Tylenol, oxycodone, Dilaudid with pain parameters. -Continue ciprofloxacin/Flagyl through tomorrow. -General surgery also following this patient in the postop period, appreciate recommendations. (2) Dyslipidemia: Plan: -Resume home statin. (3) GERD (gastroesophageal reflux disease): Plan: -Resume home famotidine 20 mg p.o. twice daily. (4) Chronic kidney disease, stage 3: Plan: -Cr at baseline on admission, continue to trend, discontinue Toradol. (5) Chronic lymphocytic leukemia (CLL), B-cell: Plan: -Patient with a history of B-cell leukemia, with a chronically elevated white blood cell count of around 11.5, however elevated up to 18 on admission, s uspected secondary to concurrent cholecystitis. -Daily CBC while admitted. (6) Impaired fasting glucose: Plan: -Prediabetes, A1C 5.8% in 02/27 -Diet-controlled -Hold metformin for now, can resume on discharge. (7) Asthma: Plan: -Continue home inhaler Plan FENGI: Clear liquid diet Code status: Full DVT ppx: SCDs Isolation: None Dispo: Medical/surgical Admission and Anticipated Discharge Date Admission Date: April 12, 2022 Subjective Patient seen today after cholecystectomy, very minimal pain, no nausea, no shortness of breath or chest pain. Review of Systems Review of Systems: All systems reviewed & are unremarkable except as noted in Subjective Physical Exam Constitutional: WD/WN, vitals as above Respiratory: normal respiratory effort, lungs clear to auscultation Cardiovascular: RRR, no murmur, no edema Gastrointestinal (Abdomen): normal bowel sounds, soft, nontender, no hepatosplenomegaly Skin: no rashes, warm and dry 4 small laparoscopic incisions with dressings noted on abdomen, dressings not disturbed in this immediate postop period Psychiatric: A+Ox3, euthymic affect Results & Data Results & Data ([facility]) Vital Signs (Past 12 Hours) Vital Signs Temp Pulse Pulse Pulse Resp BP BP 03/08/23 07:41 36.7 C 69 17 104/65 04/12/22 04:45 37.2 C 93 H 18 115/72 04/12/22 03:44 71 16 108/63 04/12/22 02:21 68 18 118/69 04/11/22 22:46 36.4 C L 69 18 148/76 H Pulse Ox O2 Del Method 04/12/22 07:41 93 Room Air 04/12/22 04:45 95 Room Air 04/12/22 03:44 93 Room Air 04/12/22 02:21 96 Room Air 04/11/22 22:46 98 Room Air PG Care Time/CCT Total # of Minutes Spent Total Time Spent with Patient: Total time spent is greater than 50% in coordination of care (as documented) at patient's floor/unit and/or counseling patient: Coding Level of Care Code None Diagnoses Acute cholecystitis K81.0 Dyslipidemia E78.5 GERD (gastroesophageal reflux disease) K21.9 Chronic kidney disease, stage 3 N18.3 Chronic lymphocytic leukemia (CLL), B-cell C91.10 Impaired fasting glucose R73.01 Asthma J45.909
[2022-04-12] MEDS ORDERED: FAMOTIDINE 20 MG in SYRINGE 3 ML IV SCH (09:00)
[2022-04-12] MEDS: metroNIDAZOLE 500 MG/100 ML BAG IV SCH ×2 (09:49→17:08)
--- NOTE | 2022-04-12 10:04 | Surgery Consultation ---
Date of Consultation April 12, 2022 Assessment & Plan (1) Acute cholecystitis: 66 year-old male with evidence of acute calculous cholecystitis with history of what sounds like recurrent biliary colic. Pain persisted and was more severe with vomiting x 2 which prompted ER evaluation. Given the recurrent epiosdes and ultrasound showing distended gallbladder with stone in neck of gallbladder and elevated leukocytosis, discussed indication for cholecystectomy. Discussed procedure and risks and expected recovery. Informed consent obtained with Dr. Fung. Keep NPO. OR for later this am. Discussed with Dr. Fung who agrees with above and obtained informed consent with patient. I reviewed pt's H/P, labs and U/S study with pt, I recommend to do laparoscopic cholecystectomy, possible open or cholangiogram, D/W benefits, risks and alternatives of the surgery, the risks - infection, bleeding, injury other organs, [place], incisional hernia, may need ERCP, pt understood, he signed informed consent, I answered all questions, History of Present Illness Reason for Consultation: Acute calculous cholecystitis Requesting Physician: Chanel Garza DO Attending Physician: Chanel Garza DO History of Present Illness Madan is a pleasant 66 year-old male with history of CLL, chronic kidney disease stage 3, dyslipidemia, GERD, asthma who presented to ED with complaint of epigastric abdominal pain with radiation to his back that started at 2 pm yesterday after eating lunch. Pain persisted and progressively got worse. History of similar episodes in past about 3 times but usually self resolves. Vomiting x 2. Mild chills. No fevers. No changes in bowel habits. No blood in stools. Takes 81 mg aspirin daily. History of inguinal hernia repair no other abdominal surgeries. States he is feeling good this am and pain has resolved but was given pain medication. No further nausea or vomiting. No fevers this am. Ultrasound showing gallstone in neck of gallbladder with associated wall thickening. Leukocytosis of 18K. Allergies Allergy/AdvReac Type Severity Reaction Status Date / Time Penicillins Allergy Mild Rash Verified 09/26/21 14:01 amoxicillin [From Augmentin] Allergy Unknown Verified 04/12/22 04:58 clavulanic acid Allergy Unknown Verified 04/12/22 04:58 [From Augmentin] Home Medications Medication Instructions Recorded Confirmed Type cetirizine 10 mg tablet (Zyrtec) 10 mg PO QPM 11/05/17 04/12/22 History glucosamine HCl 500 mg tablet 2,000 mg PO QPM 11/05/17 04/12/22 History aspirin 81 mg tablet,delayed 81 mg PO .QOD 08/03/20 04/12/22 History release (Fidelia Low Dose Aspirin) fluticasone propionate 100 1 inh inhalation BID #180 ea 11/23/20 04/12/22 Rx mcg/actuation blister powder for inhalation (Flovent Diskus) metformin 500 mg tablet,extended 500 mg PO BID #180 tabs 09/13/21 04/12/22 Rx release 24hr famotidine 20 mg tablet 20 mg PO BID 90 days #180 tabs 10/31/21 04/12/22 Rx simvastatin 20 mg tablet 20 mg PO QPM #90 tabs 10/31/21 04/12/22 Rx Patient History Medical History (Updated 04/12/22 @ 06:58 by Lynne Rudolph MD) Asthma INHALER DAILY Diverticular disease GERD (gastroesophageal reflux disease) Hyperlipidemia Osteoarthritis Tinnitus of left ear Surgical History H/O arthroscopy of left knee H/O bilateral cataract extraction H/O left inguinal hernia repair H/O repair of right rotator cuff History of colonoscopy History of tooth extraction WISDOM TEETH Family History Father Scleroderma Mother Dementia Hypertension Family/Other Prostate cancer Paternal uncle Aunt Breast cancer Denies family history of Ovarian cancer Coronary heart disease Myocardial infarction Colorectal cancer Social History Smoking Status: Never smoker Second Hand Exposure: No; Hx Alcohol Use: Yes Alcohol type: beer Alcohol Intake Frequency: 2-3 x/Week Hx Substance Use: No Preferred Language: Romansh Communication Ability: Effective Visual Impairment: No Limitations Hearing Ability: Normal 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 Beliefs That Will Affect Care: None marital status: Current Living Situation: Spouse Current Living Situation Comment: LIVES WITH current occupational status: retired current occupation: [employer] Other Information That Helps Us Care for You: No Feels Safe at Home: Yes Safety Concerns: Feels Safe At This Time Childhood Exposure to Second-Hand Smoke: No caffeine: Yes Dental Care, Regularly: Yes Physical Activity Frequency: Daily Physical Activity Frequency Comment: stretching, bicycling 2-6 hours per day Seatbelt Use: always Sunscreen Use: Yes Assistive Devices: None Physical Exam Constitutional: WD/WN, vitals as above cooperative and comfortable; no acute distress and not ill appearing Neck: normal visual inspection and trachea midline Respiratory: normal respiratory effort, lungs clear to auscultation Cardiovascular: Rate/Rhythm: regular rate and regular rhythm Gastrointestinal (Abdomen): Inspection/Auscultation: abdomen normal to inspection; abdomen not distended and + abnormal bowel sounds Percussion/Palpation: abdomen soft; abdomen nontender, no guarding and abdomen not rigid Skin: no rashes, warm and dry no jaundice Psychiatric: A+Ox3, euthymic affect Results & Data ([facility]) Vital Signs (Past 12 Hours) Vital Signs Temp Pulse Pulse Pulse Resp BP BP 04/12/22 07:41 36.7 C 69 17 104/65 04/12/22 04:45 37.2 C 93 H 18 115/72 04/12/22 03:44 71 16 108/63 04/12/22 02:21 68 18 118/69 04/11/22 22:46 36.4 C L 69 18 148/76 H Pulse Ox O2 Del Method 04/12/22 07:41 93 Room Air 04/12/22 04:45 95 Room Air 04/12/22 03:44 93 Room Air 04/12/22 02:21 96 Room Air 04/11/22 22:46 98 Room Air Laboratory Results 04/12/22 04/12/22 04/12/22 Range/Units 05:05 02:20 01:04 WBC (4.8-10.8) K/ul RBC (4.70-6.10) M/uL Hgb (14.0-18.0) g/dl Hct (42.0-52.0) % MCV (80.0-100.0) fL MCH (25.0-34.0) pg MCHC (32.0-36.0) g/dL RDW Std Deviation (36.4-46.3) fL RDW Coeff of Zana (11.5-14.5) % Plt Count (130-400) K/uL MPV (9.4-12.4) fL Immature Gran % (Auto) % Neut % (Auto) % Lymph % (Auto) % [place] % (Auto) % Eos % (Auto) % Baso % (Auto) % Neut # (Auto) (1.40-6.50) K/uL Lymph # (Auto) (1.2-3.4) K/uL [place] # (Auto) (0.11-0.59) K/uL Eos # (Auto) (0-0.50) K/uL Baso # (Auto) (0-0.2) K/uL Immature Gran # (Auto) (0.01-0.20) K/uL RBC Morphology Sodium 137 (136-145) mmol/L Potassium 4.2 (3.5-5.1) mmol/L Chloride 104 (98-107) mmol/L Carbon Dioxide 27 (21-32) mmol/L Anion Gap 6 (3-11) BUN 16 (6-23) mg/dl Creatinine 1.15 (0.6-1.4) mg/dl Est Cr Clr Drug Dosing 66.8 ml/min Est GFR ( Amer) 76.4 ml/min Est GFR (Non-Af Amer) 65.9 ml/min BUN/Creatinine Ratio 13.9 (10-20) Glucose 143 H (70-99(Fasting)) mg/dl Calcium 8.8 (8.5-10.1) mg/dl Total Bilirubin 0.6 (0.2-1.0) mg/dl AST 15 (13-39) U/L ALT 13 (7-52) U/L Alkaline Phosphatase 68 (34-104) U/L Total Protein 6.8 (6.0-8.3) gm/dl Albumin 4.5 (3.4-5.0) gm/dl Globulin 2.3 L (2.5-4.0) gm/dl Albumin/Globulin Ratio 2.0 (0.9-2) Lipase 23 (11-82) U/L Urine Color Yellow Urine Appearance Cloudy A (Clear) Urine pH 6.5 (4.5-7.5) Ur Specific [place] 1.024 (1.000-1.030) Urine Protein Negative (Negative) Urine Glucose (UA) Trace H (Negative) Urine Ketones Trace H (Negative) Urine Blood Negative (Negative) Urine Nitrite Negative (Negative) Urine Bilirubin Negative (Negative) Urine Urobilinogen Negative (Negative) Ur Leukocyte Esterase Negative (Negative) Urine WBC (Auto) 1-5 (0-5) /hpf Urine RBC (Auto) 0-4 (0-4) /hpf U Hyaline Cast (Auto) 1-5 (0-5) /lpf U Epithel Cells (Auto) 20-30 H (0-5) /lpf Urine Bacteria (Auto) Negative (Negative) SARS-CoV-2, RNA, NAAT NEGATIVE (NEGATIVE) 04/12/22 Range/Units 01:04 WBC 18.13 H (4.8-10.8) K/ul RBC 4.09 L (4.70-6.10) M/uL Hgb 13.0 L (14.0-18.0) g/dl Hct 38.0 L (42.0-52.0) % MCV 92.9 (80.0-100.0) fL MCH 31.8 (25.0-34.0) pg MCHC 34.2 (32.0-36.0) g/dL RDW Std Deviation 42.4 (36.4-46.3) fL RDW Coeff of Zana 12.4 (11.5-14.5) % Plt Count 185 (130-400) K/uL MPV 11.6 (9.4-12.4) fL Immature Gran % (Auto) 0.7 % Neut % (Auto) 64.9 % Lymph % (Auto) 31.8 % [place] % (Auto) 2.4 % Eos % (Auto) 0.0 % Baso % (Auto) 0.2 % Neut # (Auto) 11.77 H (1.40-6.50) K/uL Lymph # (Auto) 5.77 H (1.2-3.4) K/uL [place] # (Auto) 0.43 (0.11-0.59) K/uL Eos # (Auto) 0.00 (0-0.50) K/uL Baso # (Auto) 0.03 (0-0.2) K/uL Immature Gran # (Auto) 0.13 (0.01-0.20) K/uL RBC Morphology Unremarkable Sodium (136-145) mmol/L Potassium (3.5-5.1) mmol/L Chloride (98-107) mmol/L Carbon Dioxide (21-32) mmol/L Anion Gap (3-11) BUN (6-23) mg/dl Creatinine (0.6-1.4) mg/dl Est Cr Clr Drug Dosing ml/min Est GFR ( Amer) ml/min Est GFR (Non-Af Amer) ml/min BUN/Creatinine Ratio (10-20) Glucose (70-99(Fasting)) mg/dl Calcium (8.5-10.1) mg/dl Total Bilirubin (0.2-1.0) mg/dl AST (13-39) U/L ALT (7-52) U/L Alkaline Phosphatase (34-104) U/L Total Protein (6.0-8.3) gm/dl Albumin (3.4-5.0) gm/dl Globulin (2.5-4.0) gm/dl Albumin/Globulin Ratio (0.9-2) Lipase (11-82) U/L Urine Color Urine Appearance (Clear) Urine pH (4.5-7.5) Ur Specific [place] (1.000-1.030) Urine Protein (Negative) Urine Glucose (UA) (Negative) Urine Ketones (Negative) Urine Blood (Negative) Urine Nitrite (Negative) Urine Bilirubin (Negative) Urine Urobilinogen (Negative) Ur Leukocyte Esterase (Negative) Urine WBC (Auto) (0-5) /hpf Urine RBC (Auto) (0-4) /hpf U Hyaline Cast (Auto) (0-5) /lpf U Epithel Cells (Auto) (0-5) /lpf Urine Bacteria (Auto) (Negative) SARS-CoV-2, RNA, NAAT (NEGATIVE) Diagnostic Findings Exam(s): US GALLBLADDER EXAM: US Abdomen Limited, Gallbladder CLINICAL HISTORY: Reason for exam: Epigastric pain. TECHNIQUE: Real-time ultrasound of the right upper quadrant with image documentation. COMPARISON: No relevant prior studies available. FINDINGS: Limitations: The examination is moderately limited by overlying bowel gas. Liver: Unremarkable. No evidence for intra-or extra-hepatic biliary ductal dilatation, the common bile duct measures 0.5 cm. Gallbladder: The gallbladder is distended with minimal wall thickening. There is a 0.9 cm calculus noted in the gallbladder neck (image 450 series 1). Common bile duct: See above. Pancreas: Unremarkable as visualized. IMPRESSION: Findings suggesting acute cholecystitis
--- NOTE | 2022-04-12 10:10 | History & Physical Bridge Note ---
Date of Service April 12, 2022 History & Physical Bridge Note I have examined the patient, reviewed the History & Physical and in the interval since the performance of the History & Physical I have noted the following changes of clinical significance: no changes noted
--- NOTE | 2022-04-12 10:24 | Anesthesiology Consultation ---
Date of Service April 12, 2022 Assessment & Plan Chart Review Chart Review: Acceptable Risk for Surgery Consults Requested none History Surgery Operation Date: 04/12/22 09:45 Proposed Procedures p Laparoscopic Cholecystectomy - Eagle Fung MD Height/Weight Height: 5 ft 7 in Weight: 87.9 kg Allergies Allergy/AdvReac Type Severity Reaction Status Date / Time Penicillins Allergy Mild Rash Verified 09/26/21 14:01 amoxicillin [From Augmentin] Allergy Unknown Verified 04/12/22 04:58 clavulanic acid Allergy Unknown Verified 04/12/22 04:58 [From Augmentin] Medications Home Medications Medication Instructions Recorded Confirmed Last Taken cetirizine 10 mg tablet (Zyrtec) 10 mg PO QPM 11/05/17 04/12/22 11/05/17 glucosamine HCl 500 mg tablet 2,000 mg PO QPM 11/05/17 04/12/22 11/05/17 aspirin 81 mg tablet,delayed 81 mg PO .QOD 08/03/20 04/12/22 Unknown release (Fidelia Low Dose Aspirin) fluticasone propionate 100 1 inh inhalation BID #180 ea 11/23/20 04/12/22 Unknown mcg/actuation blister powder for inhalation (Flovent Diskus) metformin 500 mg tablet,extended 500 mg PO BID #180 tabs 09/13/21 04/12/22 Unknown release 24hr famotidine 20 mg tablet 20 mg PO BID 90 days #180 tabs 10/31/21 04/12/22 Unknown simvastatin 20 mg tablet 20 mg PO QPM #90 tabs 10/31/21 04/12/22 Unknown Active Medications Generic Name Dose Route Start Last Admin Trade Name Sabine PRN Reason Stop Dose Admin Fluticasone Furoate 1 puffs 04/12/22 09:00 04/12/22 08:04 Fluticasone Furoate 100mcg 14 Puffs/Inhaler INH 05/12/22 08:59 Not Given DAILY MARIA DEL CARMEN Lactated Ringer's 1,000 mls @ 100 mls/hr 04/12/22 04:52 04/12/22 06:24 Lr IV 04/12/22 14:51 100 mls/hr .Q10H MARIA DEL CARMEN Infusion Metronidazole 500 mg in 100 mls @ 100 mls/hr 04/12/22 10:00 04/12/22 09:49 Flagyl IV 04/22/22 09:59 100 mls/hr Q8H MARIA DEL CARMEN Administration Famotidine 20 mg/ Syringe 5 mls @ 2.5 mls/min 04/12/22 09:00 04/12/22 09:49 IV 05/12/22 08:59 2.5 mls/min Q12 MARIA DEL CARMEN Administration Ketorolac Tromethamine 15 mg 04/12/22 04:52 04/12/22 07:01 Ketorolac Tromethamine 15 Mg/Ml Vial IV 04/17/22 04:51 15 mg Q6H PRN Administration Pain NPO Date Last Intake of Fluids: 04/11/22 Time Last Intake of Fluids: 12:00 Past Medical History Medical History (Updated 04/12/22 @ 06:58 by Lynne Rudolph MD) Asthma INHALER DAILY Diverticular disease GERD (gastroesophageal reflux disease) Hyperlipidemia Osteoarthritis Tinnitus of left ear Past Family History Family History Father Scleroderma Mother Dementia Hypertension Family/Other Prostate cancer Paternal uncle Aunt Breast cancer Denies family history of Ovarian cancer Coronary heart disease Myocardial infarction Colorectal cancer Past Surgical History Surgical History H/O arthroscopy of left knee H/O bilateral cataract extraction H/O left inguinal hernia repair H/O repair of right rotator cuff History of colonoscopy History of tooth extraction WISDOM TEETH Social History Smoking Status: Never smoker Hx Alcohol Use: Yes Alcohol type: beer alcohol intake frequency: holidays/special occasions only Hx Substance Use: No substance use type: does not use Physical Exam Vital Signs Last Vital Signs Temp 36.7 C 04/12/22 07:41 Pulse 69 04/12/22 07:41 Resp 17 04/12/22 07:41 BP 104/65 04/12/22 07:41 Pulse Ox 93 04/12/22 07:41 O2 Del Method Room Air 04/12/22 07:41 Testing Laboratory Results 04/12/22 01:04 04/12/22 01:04 Urine Color Yellow 04/12/22 05:05 Urine Appearance Cloudy (Clear) A 04/12/22 05:05 Urine pH 6.5 (4.5-7.5) 04/12/22 05:05 Ur Specific [place] 1.024 (1.000-1.030) 04/12/22 05:05 Urine Protein Negative (Negative) 04/12/22 05:05 Urine Glucose (UA) Trace (Negative) H 04/12/22 05:05 Urine Ketones Trace (Negative) H 04/12/22 05:05 Urine Nitrite Negative (Negative) 04/12/22 05:05 Ur Leukocyte Esterase Negative (Negative) 04/12/22 05:05 Urine WBC (Auto) 1-5 /hpf (0-5) 04/12/22 05:05 Urine RBC (Auto) 0-4 /hpf (0-4) 04/12/22 05:05 U Hyaline Cast (Auto) 1-5 /lpf (0-5) 04/12/22 05:05 U Epithel Cells (Auto) 20-30 /lpf (0-5) H 04/12/22 05:05 Urine Bacteria (Auto) Negative (Negative) 04/12/22 05:05
[2022-04-12] MEDS ORDERED: ePHEDrine sulfate 50 MG/ML AMP IV PRN (10:25)
[2022-04-12] MEDS ORDERED: ATROPINE SULFATE 0.1 MG/ML 10ML SYR IV PRN (10:25)
[2022-04-12] MEDS ORDERED: fentaNYL citrate PF 100 MCG/2 ML VIAL IV PRN (10:25)
[2022-04-12] MEDS ORDERED: HYDROmorphone INJ 2 MG/ML SYR/VIAL IV PRN (10:25)
[2022-04-12] MEDS ORDERED: PROMETHAZINE HCL 12.5 MG in SODIUM CHLORIDE 0.9% 50 ML IV PRN (10:25)
[2022-04-12] MEDS ORDERED: fentaNYL citrate PF 100 MCG/2 ML VIAL ONE ×2 (10:44→12:23)
[2022-04-12] MEDS ORDERED: ONDANSETRON INJ 2 MG/ML 2 ML VIAL ONE (10:44)
[2022-04-12] MEDS ORDERED: GLYCOPYRROLATE 0.2 MG/ML VIAL ONE ×2 (10:44→12:19)
[2022-04-12] MEDS ORDERED: NEOSTIGMINE METHYLSULFATE 1 MG/ML 10ML VIAL ONE (10:44)
[2022-04-12] MEDS ORDERED: MIDAZOLAM HCL 1 MG/ML 2ML VIAL ONE (10:44)
[2022-04-12] MEDS ORDERED: DEXAMETHASONE SOD INJ 4 MG/ML VIAL ONE (10:44)
[2022-04-12] MEDS ORDERED: ROCURONIUM BROMIDE 10 MG/ML 5 ML VIAL IV ONE ×2 (10:44→12:30)
[2022-04-12] MEDS ORDERED: BUPIVACAINE 0.5 % 5 MG/1 ML MPF 30ML VIAL ONE (10:49)
[2022-04-12] MEDS ORDERED: LIDOCAINE 1% LOCAL 20 ML VIAL ONE (10:49)
[2022-04-12] MEDS ORDERED: PHENYLEPHRINE 100MCG/ML 5ML SYR ONE (11:21)
[2022-04-12] MEDS ORDERED: ePHEDrine sulfate 50 MG/ML SYR ONE (11:21)
[2022-04-12] MEDS ORDERED: BACITRACIN OINT 15 GM TUBE ONE (11:38)
[2022-04-12] MEDS ORDERED: FLOSEAL HEMOSTATIC MATRIX 10ML TOP ONE (12:14)
--- NOTE | 2022-04-12 12:25 | Post Operative Brief Note ---
Immediate Post Op Note v1 Date of Surgery April 12, 2022 Pre & Post Diagnosis Operation Date: 04/12/22 09:45 Pre-Op Diagnosis: Acute Cholecystitis, cholelithiasis Post-Op Diagnosis: Acute Cholecystitis, cholelithiasis I identified the patient and participated in the time-out.: Yes Procedure Operation Date: 04/12/22 09:45 Actual Procedures p Laparoscopic Cholecystectomy(Not Applicable) - Eagle Fung MD Surgeon Eagle Fung MD Denitrator Operator Grace Holloawy. PA Estimated Blood Loss 20 Findings Consistent with Post-Op Diagnosis significant inflammation on gallbladder wall, Fluids 900ml Specimens gallbladder Anesthesia Type General Complications none Disposition Accompanied Patient To Recovery: Yes
--- NOTE | 2022-04-12 13:31 | Anesthesiology Progress Note ---
Date of Service April 12, 2022 Anesthesia Post Procedure Vital Signs Vital Signs: Temp Pulse Pulse Pulse Pulse Resp BP 04/12/22 13:00 89 16 04/12/22 13:20 37.3 C 85 15 04/12/22 13:10 37.3 C 91 H 14 04/12/22 12:50 90 16 04/12/22 12:43 37.4 C 94 H 17 04/12/22 08:00 04/12/22 10:22 36.9 C 85 20 04/12/22 07:41 36.7 C 69 17 04/12/22 04:45 37.2 C 93 H 18 04/12/22 03:44 71 16 04/12/22 02:21 68 18 04/11/22 22:46 36.4 C L 69 18 148/76 H BP Pulse Ox O2 Del Method O2 Flow Rate 04/12/22 13:00 99/63 L 96 Oxymask 3 04/12/22 13:20 104/63 93 Room Air 04/12/22 13:10 106/65 94 Oxymask 2 04/12/22 12:50 101/64 97 Oxymask 4 04/12/22 12:43 105/61 97 Oxymask 5 04/12/22 08:00 Room Air 04/12/22 10:22 107/60 94 Room Air 04/12/22 07:41 104/65 93 Room Air 04/12/22 04:45 115/72 95 Room Air 04/12/22 03:44 108/63 93 Room Air 04/12/22 02:21 118/69 96 Room Air 04/11/22 22:46 98 Room Air Pain Intensity Upper Abdomen: Pain Intensity: 4 Right Upper Abdomen: Pain Intensity: 0 Transfer of Care Handoff Completed per policy Notes Mental Status: alert / awake / arousable and participated in evaluation Patient Amnestic to Procedure: Yes Nausea / Vomiting: adequately controlled Pain: adequately controlled Airway Patency, RR, SpO2: stable & adequate BP & HR: stable & adequate Hydration State: stable & adequate Anesthetic Complications: no major complications apparent
[2022-04-12] MEDS ORDERED: oxyCODONE/ACETAMINOPHEN 5mg/325mg TAB PO PRN (13:39)
[2022-04-12] MEDS ORDERED: ACETAMINOPHEN 325 MG TAB PO PRN (13:48)
[2022-04-12] MEDS ORDERED: ASPIRIN 81 MG ECTAB PO SCH (14:00)
[2022-04-12] MEDS: CIPROFLOXACIN / D5W 400 MG/200 ML BAG IV SCH (15:19)
[2022-04-12] MEDS ORDERED: SODIUM CHLORIDE 0.9% 1000ML 500 ML IV ONE (15:50)
[2022-04-12] MEDS ORDERED: metFORMIN HCL ER 500 MG TABCR PO SCH (17:00)
[2022-04-12] MEDS ORDERED: SODIUM CHLORIDE 0.9% 1000ML 1,000 ML IV ONE (18:44)
--- NOTE | 2022-04-12 19:48 | Operative Report (OR) ---
DATE OF PROCEDURE: 04/12/2022. PREOPERATIVE DIAGNOSES: Acute cholecystitis, cholelithiasis. POSTOPERATIVE DIAGNOSES: Acute cholecystitis, cholelithiasis. OPERATION: Laparoscopic cholecystectomy. SURGEON: Eagle Fung MD. FINANCIAL OPERATIONS CONSULTANT: Grace Holloway PA-C. ANESTHESIA: General. ESTIMATED BLOOD LOSS: About 20 mL. FINDINGS: Significant inflammation on the gallbladder wall with cholelithiasis. COMPLICATIONS: None. INDICATIONS FOR PROCEDURE: This is a 66-year-old gentleman who was admitted to the hospital for acut e cholecystitis with cholelithiasis. I recommended to do laparoscopic cholecystectomy, possible open , possible cholangiogram. I did talk to the patient about the benefit, risk, alternate procedure. I indicated the risks may include but not limited to such as bleeding, infection, injury to other orga ns, incisional hernia, may need ERCP, bile leak, myocardial infarction. The patient understands. He signed informed consent and I answered all questions. DETAILS OF PROCEDURE: After we identified the patient and verified the procedure, we brought the pat ient to the OR, put the patient in the supine position on the OR table. The patient received SCD on bilateral legs to prevent DVT. Also, the patient received 500 mg Flagyl IV for prophylactic antibiot ic. The patient received general anesthesia without difficulty. The abdomen was prepped and draped in routine sterile fashion. After timeout, I injected the local anesthesia by using 1% lidocaine mix ed with 0.5% Marcaine just above the umbilicus. Then, I made a small incision just above umbilicus, o pened fascia, opened peritoneum. Under direct vision, put a Hair trocar in, connected to CO2 to cr eate pneumoperitoneum, flow rate at 6 liters per minute, pressure not more than 14 mmHg. Once we got a nice pneumoperitoneum, we put a camera in, looked around the abdomen, it shows normal finding on t he liver; however, the gallbladder, significant distention with significant inflammation on the gallb ladder wall, confirmed diagnosis of acute cholecystitis. We used a large needle to decompress the gal lbladder first. Then, we used the grasper to hold the base of gallbladder, put that direction to the diaphragm. Another grasper to hold the pouch of gallbladder, put that lateral to explore the triangl e of [place]. The cystic duct was identified and mobilized and also we put another two 5 mm trocars on the right upper quadrant, one is an 11 trocar in the epigastric area. Again, we used grasper to hol d the pouch of gallbladder to explore the triangle of [place]. The cystic duct was identified and mobi lized. I put two 10 mm metal clips on the proximal cystic duct, 1 on the distal cystic duct. I then used a scissor for transection of cystic duct, rechecked, no bile leak. The cystic artery was ident ified and mobilized. I put two 10 mm metal clips on the proximal cystic artery, 1 on the distal cyst ic artery, then used a scissor for transection of cystic artery, rechecked, no active bleeding. Then , we used the Bovie to take down gallbladder from liver bed, rechecked, and no active bleeding, no bi le leak from liver bed. Then, we removed gallbladder through the catch bag. Then, we reinserted the Hair trocar in, connected to CO2 to create pneumoperitoneum, again looked around the abdomen, no a ctive bleeding, no bile leak from liver bed. Then, we removed all trocars under direct vision. No a ctive bleeding from the trocar site. Pneumoperitoneum was released. Then, I closed the umbilical inc ision fascial layer by using 0 Vicryl [id number] x2, closed subcutaneous layer by using 2-0 Vicr yl interruptedly, closed skin by using 4-0 Vicryl continuous running. Closed the epigastric incision fascial layer by using 0 Vicryl [id number] x2, closed subcutaneous layer by using 2-0 Vicryl int erruptedly, closed skin by using 4-0 Vicryl interruptedly. Closed another 5 mm trocar site of skin on ly by using 4-0 Vicryl. Then, we put the dressing on. The patient tolerated the procedure well. Al l instrument, needle and sponge counts were correct x2 at the end of the case. The patient was trans ferred to recovery room in a stable condition. The specimen was sent to pathology. After the proced ure, I did talk to the patient about the OR finding and the procedure we did, the patient understands . The nurse first aid, Grace, was necessary for this procedure. Her role was to hold the camera, retraction and exposure. Job ID: [id number]
[2022-04-12] MEDS ORDERED: CETIRIZINE HCL 10 MG TABLET PO SCH (21:00)
[2022-04-12] MEDS ORDERED: GLUCOSAMINE HCL 500 MG PO SCH (21:00)
[2022-04-12] MEDS ORDERED: SIMVASTATIN 20 MG TAB PO SCH (21:00)
[2022-04-12] MEDS: FAMOTIDINE 20 MG TAB PO SCH (21:08)
[2022-04-13] MEDS: CIPROFLOXACIN / D5W 400 MG/200 ML BAG IV SCH ×2 (02:31→14:05)
[2022-04-13] MEDS: metroNIDAZOLE 500 MG/100 ML BAG IV SCH ×2 (02:32→09:08)
--- NOTE | 2022-04-13 08:08 | Hospitalist Progress Note ---
Date of Service April 13, 2022 Assessment & Plan (1) Acute cholecystitis: Plan: -Clinical history, exam, gallbladder ultrasound with findings suggestive of acute cholecystitis. -S/p cholecystectomy 04/[address] Fung. -Advanced to clear liquid diet, and given fluid bolus due to mild hypotension postop. -Zofran PRN nausea. Pain control with Tylenol, oxycodone, Dilaudid with pain parameters. -Continue ciprofloxacin/Flagyl through tomorrow. -General surgery also following this patient in the postop period, appreciate recommendations. (2) Dyslipidemia: Plan: -Resume home statin. (3) GERD (gastroesophageal reflux disease): Plan: -Resume home famotidine 20 mg p.o. twice daily. (4) Chronic kidney disease, stage 3: Plan: -Cr at baseline on admission, continue to trend, discontinue Toradol. (5) Chronic lymphocytic leukemia (CLL), B-cell: Plan: -Patient with a history of B-cell leukemia, with a chronically elevated white blood cell count of around 11.5, however elevated up to 18 on admission, s uspected secondary to concurrent cholecystitis. -Daily CBC while admitted. (6) Impaired fasting glucose: Plan: -Prediabetes, A1C 5.8% in 02/27 -Diet-controlled -Hold metformin for now, can resume on discharge. (7) Asthma: Plan: -Continue home inhaler Plan FENGI: Clear liquid diet Code status: Full DVT ppx: SCDs Isolation: None Dispo: Medical/surgical Admission and Anticipated Discharge Date Admission Date: April 12, 2022 Results & Data Results & Data ([facility]) Vital Signs (Past 12 Hours) Vital Signs Temp Pulse Resp BP BP Pulse Ox O2 Del Method 04/13/22 07:37 36.7 C 55 L 18 100/58 L 94 Room Air 04/13/22 02:35 96 Room Air 04/13/22 02:27 36.3 C L 48 L 16 112/56 L 93 Room Air 04/12/22 22:44 36.5 C 62 16 100/57 L 96 Room Air PG Care Time/CCT Total # of Minutes Spent Total Time Spent with Patient: Total time spent is greater than 50% in coordination of care (as documented) at patient's floor/unit and/or counseling patient: Coding Diagnoses Acute cholecystitis K81.0 Dyslipidemia E78.5 GERD (gastroesophageal reflux disease) K21.9 Chronic kidney disease, stage 3 N18.3 Chronic lymphocytic leukemia (CLL), B-cell C91.10 Impaired fasting glucose R73.01 Asthma J45.909
[2022-04-13] MEDS: FAMOTIDINE 20 MG TAB PO SCH (09:00)
[2022-04-13] MEDS: FLUTICASONE FUROATE 100MCG 14 PUFFS/INHALER INH SCH (09:00)
[2022-04-13 09:48] LABS: Hematocrit (blood only) 31.1 % (42.0-52.0); Hemoglobin 10.7 g/dl (14.0-18.0); Mean Corpuscular Hemoglobin 31.8 pg (25.0-34.0); Mean Corpuscular Hgb Conc 34.4 g/dL (32.0-36.0); Mean Corpuscular Volume 92.3 fL (80.0-100.0); Mean Platelet Volume 12.2 fL (9.4-12.4); Platelet Count 145 K/uL (130-400); RDW Coefficient of Variation 12.9 % (11.5-14.5); RDW Standard Deviation 43.6 fL (36.4-46.3); Red Blood Count 3.37 M/uL (4.70-6.10); White Blood Count 12.65 K/ul (4.8-10.8)
[2022-04-13 10:05] LABS: Albumin Globulin Ratio 1.8 (0.9-2); Albumin Level 3.6 gm/dl (3.4-5.0); BUN Creatinine Ratio 14.6 (10-20); Bilirubin,Total 0.9 mg/dl (0.2-1.0); Calcium 8.3 mg/dl (8.5-10.1); Creatinine Clr Calc Pharmacy 74.7 ml/min; Est GFR (African American) 87.3 ml/min; Est GFR (Non-African American) 75.3 ml/min; Potassium 3.8 mmol/L (3.5-5.1); Total Protein 5.6 gm/dl (6.0-8.3)
[2022-04-13 11:10] LABS: Basophils # (auto) 0.03 K/uL (0-0.2); Basophils % (auto) 0.2 %; Eosinophils # (auto) 0.01 K/uL (0-0.50); Eosinophils % (auto) 0.1 %; Immature Granulocytes % (auto) 0.8 %; Lymphocytes # (auto) 5.83 K/uL (1.2-3.4); Lymphocytes % (auto) 46.1 %; Monocytes # (auto) 0.69 K/uL (0.11-0.59); Monocytes % (auto) 5.5 %; Neutrophils # (auto) 5.99 K/uL (1.40-6.50); Neutrophils % (auto) 47.3 %; Smudge Cells Present
--- NOTE | 2022-04-13 11:52 | Discharge Summary ---
Discharge Summary Date of Service April 13, 2022 Admission HPI Per Admitting Provider 66 yo M with PMH CLL, CKD3, GERD, prediabetes, asthma, HLD presenting with abdominal pain. Pt states he has had intermittent epigastric/RUQ abdominal pain for past few ye ars, typically lasts for few hours with self-resolution, exacerbated by greasy/oily foods. Earlier on 04/11 after lunch he developed epigastric abdominal pain without radiation to anywhere else. This pain is similar to his previous ones- describes as sharp, moderate severity, associated with nausea. It persisted longer than usual so he came to ED. Pt arrived to ER hemodynamically stable. Initial labs include WBC 18. CBC, CMP, lipase otherwise unremarkable. RUQ US with findings suggestive of cholecystitis. Pt was given Zofran, morphine, Dilaudid and ciprofloxacin/Flagyl in ER. On my evaluation, he denies active abdominal pain but this was shortly after administration of pain medication. Admission Exam Per Admitting Provider Constitutional: WD/WN, vitals as above no acute distress Eyes: PERRL, conjunctivae normal, anicteric sclerae Neck: trachea midline, no thyromegaly Respiratory: normal respiratory effort, lungs clear to auscultation Cardiovascular: RRR, no murmur, no edema Gastrointestinal (Abdomen): Soft, nondistended, tender to epigastrium and RUQ, positive Nguyễn sign, no rebound or guarding, normal bowel sounds Skin: no rashes, warm and dry Neurologic: moves all extremities Psychiatric: A+Ox3, euthymic affect Principal Dx & Hospital Course #1 = Principal Diagnosis (1) Acute cholecystitis: (2) Chronic kidney disease, stage 3: (3) GERD (gastroesophageal reflux disease): (4) Impaired fasting glucose: (5) Chronic lymphocytic leukemia (CLL), B-cell: (6) Asthma: (7) Dyslipidemia: Plan Acute cholecystitis: -Clinical history, exam, gallbladder ultrasound with findings suggestive of acute cholecystitis. -S/p cholecystectomy 04/[address] Fung. -Advanced diet as tolerated without issues. Low-fat diet discussed for discharge. -General surgery also following this patient in the postop period, will have follow-up in office in 2 weeks. Dyslipidemia: -Resume home statin. GERD (gastroesophageal reflux disease): -Resume home famotidine 20 mg p.o. twice daily. Chronic kidney disease, stage 3: -Cr at baseline on admission. Chronic lymphocytic leukemia (CLL), B-cell: -Patient with a history of B-cell leukemia, with a chronically elevated white blood cell count of around 11.5, however elevated up to 18 on admission, suspected secondary to concurrent cholecystitis. -Improved with a WBC count of 12 on discharge. Impaired fasting glucose: -Prediabetes, A1C 5.8% in 02/27. -Diet-controlled. -Resume metformin on discharge. Asthma: -Continue home inhaler. Discharge Exam Constitutional WD/WN, vitals as above Respiratory normal respiratory effort, lungs clear to auscultation Cardiovascular RRR, no murmur, no edema Gastrointestinal (Abdomen) normal bowel sounds, soft, nontender, no hepatosplenomegaly Skin Abdominal laparoscopy incision dressings are clean and dry, no surrounding erythema Updated Medication List Medication Instructions Recorded Confirmed Type cetirizine 10 mg tablet (Zyrtec) 10 mg PO QPM 11/05/17 04/12/22 History glucosamine HCl 500 mg tablet 2,000 mg PO QPM 11/05/17 04/12/22 History aspirin 81 mg tablet,delayed 81 mg PO .QOD 08/03/20 04/12/22 History release (Fidelia Low Dose Aspirin) fluticasone propionate 100 1 inh inhalation BID #180 ea 11/23/20 04/12/22 Rx mcg/actuation blister powder for inhalation (Flovent Diskus) metformin 500 mg tablet,extended 500 mg PO BID #180 tabs 09/13/21 04/12/22 Rx release 24hr famotidine 20 mg tablet 20 mg PO BID 90 days #180 tabs 10/31/21 04/12/22 Rx simvastatin 20 mg tablet 20 mg PO QPM #90 tabs 10/31/21 04/12/22 Rx Hospital Stay Data Consultations 04/12/22 02:22 Consult General Surgery Stat ED Decision to Admit Stat Procedures Performed Operation Date: 04/12/22 09:45 Actual Procedures p Laparoscopic Cholecystectomy(Not Applicable) - Eagle Fung MD Diagnostic Imagining Performed 04/11/22 23:25 US gallbladder Stat Discharge Instructions Given to Patient (Per Discharging Provider) You were admitted for evaluation and management of acute cholecystitis, infection of the gallbladder. You were given IV antibiotics and had your gallbladder removed. Please see the surgical recommendations below for post- surgery care. Try to keep to a low fiber/fat diet over the next few days to give your belly a break. Please follow up with the surgeon and with your family doc in the coming weeks. No changes were made to your home medications. Total Time Total Time Spent Total Time Spent (In Minutes): 35 minutes Coding Level of Care Code 56335 INP/OBS DISCH >30 MIN Diagnoses Acute cholecystitis K81.0 Chronic kidney disease, stage 3 N18.3 GERD (gastroesophageal reflux disease) K21.9 Impaired fasting glucose R73.01 Chronic lymphocytic leukemia (CLL), B-cell C91.10 Asthma J45.909 Dyslipidemia E78.5
--- NOTE | 2022-04-13 11:54 | Surgery Progress Note ---
Date of Service April 13, 2022 Assessment & Plan (1) Acute cholecystitis: Plan: POD # 1 s/p laparoscopic cholecystectomy - afebrile, vss - no postop pain - no n,v - leukocytosis improved to 12k (18K preop) - mildly hypotensive but asymptomatic Plan: Okay from surgical standpoint for discharge discharge instructions reviewed f/u surgery office in [address] sullivan was present during my examination and agrees with above. Admission and Anticipated Discharge Date Admission Date: April 12, 2022 Subjective feeling great, no abdominal or incisional pain tolerated diet no n,v blood pressure slightly low but asymptomatic ambulating hallway Physical Exam Constitutional: WD/WN, vitals as above cooperative and comfortable; no acute distress and not ill appearing Neck: normal visual inspection and trachea midline Respiratory: normal respiratory effort; no respiratory distress and no labored breathing Gastrointestinal (Abdomen): Inspection/Auscultation: abdomen normal to inspection and + abdominal surgical incision (covered with dressings, spotting on epigastric incision); abdomen not distended Percussion/Palpation: abdomen soft; abdomen nontender, no guarding and abdomen not rigid Skin: no rashes, warm and dry no jaundice Psychiatric: A+Ox3, euthymic affect Results & Data ([facility]) Vital Signs (Past 12 Hours) Vital Signs Temp Pulse Resp BP Pulse Ox O2 Del Method 04/13/22 11:00 36.7 C 62 16 105/62 95 Room Air 04/13/22 07:37 36.7 C 55 L 18 100/58 L 94 Room Air 04/13/22 02:35 96 Room Air 04/13/22 02:27 36.3 C L 48 L 16 112/56 L 93 Room Air Laboratory Results 04/13/22 04/13/22 Range/Units 09:08 09:08 WBC 12.65 H (4.8-10.8) K/ul RBC 3.37 L (4.70-6.10) M/uL Hgb 10.7 L (14.0-18.0) g/dl Hct 31.1 L (42.0-52.0) % MCV 92.3 (80.0-100.0) fL MCH 31.8 (25.0-34.0) pg MCHC 34.4 (32.0-36.0) g/dL RDW Std Deviation 43.6 (36.4-46.3) fL RDW Coeff of Zana 12.9 (11.5-14.5) % Plt Count 145 (130-400) K/uL MPV 12.2 (9.4-12.4) fL Immature Gran % (Auto) 0.8 % Neut % (Auto) 47.3 % Lymph % (Auto) 46.1 % Elk % (Auto) 5.5 % Eos % (Auto) 0.1 % Baso % (Auto) 0.2 % Neut # (Auto) 5.99 (1.40-6.50) K/uL Lymph # (Auto) 5.83 H (1.2-3.4) K/uL Elk # (Auto) 0.69 H (0.11-0.59) K/uL Eos # (Auto) 0.01 (0-0.50) K/uL Baso # (Auto) 0.03 (0-0.2) K/uL Immature Gran # (Auto) 0.10 (0.01-0.20) K/uL Smudge Cells Present Sodium 132 L (136-145) mmol/L Potassium 3.8 (3.5-5.1) mmol/L Chloride 102 (98-107) mmol/L Carbon Dioxide 24 (21-32) mmol/L Anion Gap 6 (3-11) BUN 15 (6-23) mg/dl Creatinine 1.03 (0.6-1.4) mg/dl Est Cr Clr Drug Dosing 74.7 ml/min Est GFR ( Amer) 87.3 ml/min Est GFR (Non-Af Amer) 75.3 ml/min BUN/Creatinine Ratio 14.6 (10-20) Glucose 130 H (70-99(Fasting)) mg/dl Calcium 8.3 L (8.5-10.1) mg/dl Total Bilirubin 0.9 (0.2-1.0) mg/dl AST 21 (13-39) U/L ALT 21 (7-52) U/L Alkaline Phosphatase 53 (34-104) U/L Total Protein 5.6 L (6.0-8.3) gm/dl Albumin 3.6 (3.4-5.0) gm/dl Globulin 2.0 L (2.5-4.0) gm/dl Albumin/Globulin Ratio 1.8 (0.9-2)
== END 2022-04-13 14:46 | disposition home or self-care (01) | DRG 418 ==
LOC: ED 22:41 → INTOOBSV 04-12 03:04 → SUATTDRO 04-12 03:04 → 3N 04-12 03:04
DX: Z88.0 Allergy status to penicillin; E78.5 Hyperlipidemia, unspecified; C91.10 Chronic lymphocytic leukemia of B-cell type not having achieved remission; Z79.82 Long term (current) use of aspirin; R73.03 Prediabetes; K80.00 Calculus of gallbladder with acute cholecystitis without obstruction; Z79.84 Long term (current) use of oral hypoglycemic drugs; J45.909 Unspecified asthma, uncomplicated; Z88.1 Allergy status to other antibiotic agents; R10.13 Epigastric pain; N18.30 Chronic kidney disease, stage 3 unspecified; Z20.822 Contact with and (suspected) exposure to COVID-19; I95.81 Postprocedural hypotension; K21.9 Gastro-esophageal reflux disease without esophagitis